=== PATIENT | female | born 1955 | race Hispanic/Latino ===

== ENCOUNTER 2018-03-19 23:59 | Emergency (ER) | payer MEDICAID, MEDICARE ==
[2018-03-20 01:53] LABS: BASO % 0.6 % (0.0-2.0); EOS # 0.1 K/uL (0.0-0.7); EOS % 1.8 % (0.0-4.0); HEMOGLOBIN 12.5 g/dL (12.0-16.0); LYMPH # 1.5 K/uL (1.0-4.3); LYMPH % 18.5 % (20.0-40.0); MEAN CORPUSCULAR HEMOGLOBIN 29.5 pg (27.0-31.0); MEAN CORPUSCULAR HGB CONC 33.5 g/dL (33.0-37.0); MEAN PLATELET VOLUME 8.2 fl (7.2-11.7); MONO # 0.8 K/uL (0.0-0.8); MONO % 9.6 % (0.0-10.0); NEUT # 5.7 K/uL (1.8-7.0); NEUT % 69.5 % (50.0-75.0); RBC 4.22 Mil/uL (3.80-5.20); RED CELL DISTRIBUTION WIDTH 13.2 % (11.5-14.5); WHITE BLOOD COUNT 8.3 K/uL (4.8-10.8)
[2018-03-20 02:02] LABS: BLOOD UREA NITROGEN 16 mg/dl (7-17); CALCIUM 9.2 mg/dL (8.4-10.2); GFR AFRICAN-AMERICAN > 60; GFR NON-AFRICAN AMERICAN > 60
--- NOTE | 2018-03-20 04:03 | ED PDOC ---
HPI: Psych/Substance Abuse Time Seen by Provider: 03/20/18 00:52 Chief Complaint (Nursing): Psychiatric Evaluation Chief Complaint (Provider): Psychiatric Evaluation History Per: Patient History/Exam Limitations: no limitations Onset/Duration Of Symptoms: Hrs Current Symptoms Are (Timing): Still Present Associated Symptoms: Anxiety, Depression. denies: Suicidal Thoughts, Suicidal Plan Additional Complaint(s): Bree Cody is a 62 year old female with a past medical history of depression, bipolar disorder, and anxiety who was brought to the ED by EMS s/p being found wandering the street in her socks. Patient has not seen her psychiatrist in several months and she states that her mind just flipped. She reports that there is a person in her building that makes her feel very anxious and she saw them in the laundry room of her building. She says that she went straight to her apartment and then couldn't think straight so she ran out. Patient denies any suicidal or homicidal ideation. Denies fever, headache, dizziness, CP, SOB, abdominal pain, N/V. Has no other complaints. PMD: Kaylee Collado Past Medical History Reviewed: Historical Data, Nursing Documentation, Vital Signs Vital Signs: Last Vital Signs Temp Pulse 76 03/20/18 00:01 Resp 18 03/20/18 00:01 BP 170/76 H 03/20/18 00:01 Pulse Ox 99 03/20/18 00:01 - Medical History PMH: Anxiety, Bipolar Disorder, Depression, Gastritis, Hypercholesterolemia Denies: Chronic Kidney Disease - Surgical History Surgical History: No Surg Hx - Family History Family History: States: Unknown Family Hx - Social History Current smoker - smoking cessation education provided: No Alcohol: None Drugs: Denies - Home Medications Home Medications: Ambulatory Orders Medication Instructions Recorded Atorvastatin [Lipitor] 20 mg PO DAILY #0 tab 02/08/15 Lamotrigine [Lamictal Xr] 50 mg PO DAILY #30 ter 02/08/15 Risperidone [Risperdal] 0.5 mg PO DAILY #30 tab 02/08/15 Nitrofurantoin Macrocrystals 100 mg PO BID #20 cap 03/20/18 [Macrobid] - Allergies Allergies/Adverse Reactions: Allergies Allergy/AdvReac Type Severity Reaction Status Date / Time No Known Allergies Allergy Verified 02/07/15 00:02 Review of Systems ROS Statement: Except As Marked, All Systems Reviewed And Found Negative Psych: Negative for: Suicidal ideation, Other (homicidal ideation) Physical Exam - Reviewed Nursing Documentation Reviewed: Yes Vital Signs Reviewed: Yes - Physical Exam Comments: GENERAL APPEARANCE: Patient is awake, alert, oriented x 3, in no acute distress. SKIN: Warm, dry; (-) cyanosis HEAD: (-) scalp swelling, (-) scalp tenderness. EYES: (-) conjunctival pallor, (-) scleral icterus, (-) nystagmus. ENMT: Mucous membranes moist. Airway patent: (-) stridor. NECK: (-) tenderness, (-) stiffness, (-) lymphadenopathy. CHEST AND RESPIRATORY: (-) rales, (-) rhonchi, (-) wheezes; breath sounds equal. ABDOMEN: Soft, (-) distention, (-) tenderness, (-) guarding. NEURO AND PSYCH: Mental status as above. 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 Pupils equal and reactive; EOMI; (-) facial asymmetry; tongue and uvula midline. Strength symmetric. - Laboratory Results Result Diagrams: 03/20/18 01:51 03/20/18 01:51 - ECG ECG Rhythm: Positive for: Normal QRS, Normal ST Segment, Sinus Rhythm Rate: 94 O2 Sat by Pulse Oximetry: 99 (RA) Pulse Ox Interpretation: Normal Medical Decision Making Medical Decision Making: Time: 1:03 Plan: --EKG --Alcohol Serum --BMP --Drug Screen --CBC --CXR --1:1 Observation --Urinalysis Chest X-Ray : NAD, as read by VIVIAN. Labs reviewed : CBC and CMP are within normal limits, alcohol (-). UA +UTI. Macrobid ordered. Patient is medically cleared for crisis evaluation. Patient seen and evaluated by crisis. After crisis evaluation, plan will be for outpatient psych follow up as per Dr. Perkins. Scribe Attestation: Documented by, Yamilka Grace acting as a scribe for Heather Yanez PA-C. Provider Scribe Attestation: All medical record entries made by the Scribe were at my direction and personally dictated by me. I have reviewed the chart and agree that the record accurately reflects my personal performance of the history, physical exam, medical decision making, and the department course for this patient. I have also personally directed, reviewed, and agree with the discharge instructions and disposition. 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
[2018-03-20 04:26] LABS: SQUAMOUS EPITHIAL 1 /hpf (0-5); URINE BACTERIA RARE (<OCC); URINE BILIRUBIN NEGATIVE (NEGATIVE); URINE BLOOD NEGATIVE (NEGATIVE); URINE CLARITY CLOUDY (Clear); URINE COLOR YELLOW (YELLOW); URINE GLUCOSE (UA) NEG (Normal); URINE LEUKOCYTE ESTERASE MOD Leu/uL (Negative); URINE PROTEIN 30 mg/dL (NEGATIVE); URINE UROBILINOGEN 0.2-1.0 mg/dL (0.2-1.0)
[2018-03-20 05:19] LABS: BARBITURATES, UR NEGATIVE (NEGATIVE); BENZODIAZEPINES, UR NEGATIVE (NEGATIVE); OPIATES, UR NEGATIVE (NEGATIVE); PHENCYCLIDINE, UR NEGATIVE (NEGATIVE)
[2018-03-20 05:45] VITALS: BP 152/77; RESP 17; TEMP 97.7
[2018-03-20 06:04] VITALS: PULSE 94; O2SAT 99
--- NOTE | 2018-03-20 08:08 | RAD ---
PROCEDURE: CHEST RADIOGRAPH, 1 VIEW HISTORY: psych eval COMPARISON: Portable chest 04/03/2016. FINDINGS: LUNGS: No active pulmonary disease. Improved inspiratory volume noted. PLEURA: No pneumothorax or pleural fluid seen. CARDIOVASCULAR: Normal. OSSEOUS STRUCTURES: No significant abnormalities. VISUALIZED UPPER ABDOMEN: Normal. OTHER FINDINGS: None. IMPRESSION: No interval acute cardiopulmonary disease appreciated.
--- NOTE | 2018-03-20 08:42 | CARD ---
APPROVED REPORT EKG Measurement Heart [id number] <Conclusion> Normal sinus rhythm Normal ECG
== END 2018-03-20 06:46 | disposition home or self-care (01) ==
LOC: H.ER 23:59
DX: F31.9 Bipolar disorder, unspecified (principal); N39.0 Urinary tract infection, site not specified; E78.00 Pure hypercholesterolemia, unspecified; F41.9 Anxiety disorder, unspecified
CPT/HCPCS: 71045; 80048; 81003; 85025; 93005; 99283; G0480

== ENCOUNTER 2018-03-27 22:52 | Emergency (ER) | payer MEDICARE ==
[2018-03-27 22:57] VITALS: BP 134/71; PULSE 96; RESP 16; O2SAT 98
[2018-03-27] MEDS ORDERED: Calamine/Zinc Oxide LOTION TOP STA (23:38)
[2018-03-27] MEDS ORDERED: Naproxen 500 MG TAB PO STA (23:38)
--- NOTE | 2018-03-27 23:38 | ED PDOC ---
HPI: Skin/Bite Injury Time Seen by Provider: 03/27/18 23:00 Chief Complaint (Nursing): Abnormal Skin Integrity Chief Complaint (Provider): Rash History Per: Patient History/Exam Limitations: no limitations Onset/Duration Of Symptoms: Days (since yesterday) Current Symptoms Are (Timing): Still Present Quality Of Symptoms: Painful ("stinging") Additional Complaint(s): Patient is a 62 year old female who presents to ED for evaluation of stinging rash to bilateral legs since yesterday. Patient reports onset of symptoms after using a new shaving cream in the shower. Patient reports no history of similar reactions. Patient took a baby aspirin at 6pm tonight and a Tylenol yesterday night for her symptoms with minimal relief. Patient denies: fever, chills, facial swelling, SOB, cough, nausea/vomiting, abdominal pain, chest pain. No other complaints at this time. PMD: Tobias Past Medical History Reviewed: Historical Data, Nursing Documentation, Vital Signs Vital Signs: Last Vital Signs Temp 98.2 F 03/27/18 22:55 Pulse 96 H 03/27/18 22:55 Resp 16 03/27/18 22:55 BP 134/71 03/27/18 22:55 Pulse Ox 98 03/27/18 23:50 - Medical History PMH: Anxiety, Depression, Gastritis, Hypercholesterolemia Other PMH: UTI - Surgical History Surgical History: Endoscopy Other surgeries: Colonoscopy. Procedure for sinuses - Family History Family History: States: Unknown Family Hx - Living Arrangements Living Arrangements: Alone - Social History Current smoker - smoking cessation education provided: No Alcohol: None Drugs: Denies - Home Medications Home Medications: Ambulatory Orders Medication Instructions Recorded Atorvastatin [Lipitor] 20 mg PO DAILY #0 tab 02/08/15 Lamotrigine [Lamictal Xr] 50 mg PO DAILY #30 ter 02/08/15 Risperidone [Risperdal] 0.5 mg PO DAILY #30 tab 02/08/15 Nitrofurantoin Macrocrystals 100 mg PO BID #20 cap 03/20/18 [Macrobid] Meloxicam [Mobic] 15 mg PO DAILY PRN #10 tab 03/27/18 Pramoxine HCl/Camph/Zinc Acet 1 applic TOP BID #1 bottle 03/27/18 [Calaclear 1%-0.1% 177 ml] - Allergies Allergies/Adverse Reactions: Allergies Allergy/AdvReac Type Severity Reaction Status Date / Time No Known Allergies Allergy Verified 02/07/15 00:02 Review of Systems ROS Statement: Except As Marked, All Systems Reviewed And Found Negative Skin: Positive for: Rash (to bilateral lower extremities) Physical Exam - Reviewed Nursing Documentation Reviewed: Yes Vital Signs Reviewed: Yes - Physical Exam Appears: Positive for: Well, Non-toxic, No Acute Distress Head Exam: Positive for: NORMOCEPHALIC Skin: Positive for: Warm, Dry, Rash (erythematous, maculopapules to bilateral distal lower extremities (-) warmth (-) tenderness (-) drainage (-) skin break ( -) evidence of cellulitis) ENT: Positive for: Other (Airway patent (-) stridor. Mucus membranes moist.) Neck: Positive for: Painless ROM, Supple Cardiovascular/Chest: Positive for: Regular Rate, Rhythm Respiratory: Positive for: Normal Breath Sounds Extremity: Positive for: Normal ROM (of bilateral lower extremities), Capillary Refill (intact), Other (sensation intact throughout.). Negative for: Tenderness , Pedal Edema, Calf Tenderness, Deformity, Swelling Neurologic/Psych: Positive for: Alert, Oriented (x3), Gait (steady in ED). Negative for: Aphasia, Facial Droop - ECG O2 Sat by Pulse Oximetry: 98 (RA) Pulse Ox Interpretation: Normal Medical Decision Making Medical Decision Making: Initial Impression: Contact dermatitis, rash Plan: -Naproxen 500mg PO -Topical Calamine Lotion -Re-evaluation 0005 On re-evaluation, patient reports improvement of symptoms. On exam, patient remains AAOx3, in no acute distress. On exam, neck is supple, lungs CTA, cardiac RRR, neuro exam shows no focal findings. Ambulatory in ED with a steady , unassisted gait. VSS, stable for discharge. Diagnostic results d/w the patient in great detail. Dx of rash, contact dermatitis d/w the patient. Based on history, exam and diagnostic results plan will be for discharge and outpatient follow up. Advised to follow up with primary care physician in 1-2 days without fail. Advised to take medication as prescribed. Return to the emergency room at any time for any new or worsening symptoms. Patient states she fully agrees with and understands discharge instructions. States that she agrees with the plan and disposition. Verbalized and repeated discharge instructions and plan. I have given the patient opportunity to ask any additional questions. Disposition - Clinical Impression Clinical Impression: Rash, Contact dermatitis - Patient ED Disposition Is Patient to be Admitted: No Counseled Patient/Family Regarding: Studies Performed, Diagnosis, Need For Followup, Rx Given - Disposition Referrals: Kaylee Collado MD [Medical Doctor] - [facility]iatry Clinic [Outside] Disposition: Routine/Home Disposition Time: 00:05 Condition: STABLE Additional Instructions: FOLLOW UP WITH PMD IN 1-2 DAYS FOR FURTHER EVALUATION. RETURN TO ED WITH ANY NEW OR WORSENING SYMPTOMS. USE PRESCRIBED MEDICATION NEEDED FOR DISCOMFORT/SYMPTOMS. AVOID USE OF IRRITANT/PRODUCT THAT PRODUCED SYMPTOMS. Prescriptions: Meloxicam [Mobic] 15 mg PO DAILY PRN #10 tab PRN Reason: Pain, Moderate (4-7) Pramoxine HCl/Camph/Zinc Acet [Calaclear 1%-0.1% 177 ml] 1 applic TOP BID #1 bottle Instructions: Contact Dermatitis (DC), Skin Rash (DC) Forms: [facility] (Andorran) Print Language: IRANIAN - POA Present On Arrival: None
[2018-03-27] MEDS ORDERED: Naproxen 500 MG TAB PO ONE (23:41)
[2018-03-28 00:09] VITALS: TEMP 98
== END 2018-03-28 00:07 | disposition home or self-care (01) ==
LOC: H.ER 22:52
DX: L25.9 Unspecified contact dermatitis, unspecified cause (principal)

== ENCOUNTER 2018-04-01 01:50 | Emergency (ER) | payer MEDICARE ==
[2018-04-01 02:08] VITALS: BP 162/72; PULSE 88; RESP 18; TEMP 97.6; O2SAT 98
[2018-04-01] MEDS ORDERED: Sodium Chloride 0.9% 500 ML IV STA (02:59)
[2018-04-01 03:37] LABS: BASO # 0.1 K/uL (0.0-0.2); BASO % 1.2 % (0.0-2.0); EOS # 0.4 K/uL (0.0-0.7); EOS % 7.3 % (0.0-4.0); HEMOGLOBIN 12.3 g/dL (12.0-16.0); LYMPH # 1.9 K/uL (1.0-4.3); LYMPH % 32.1 % (20.0-40.0); MEAN CELL VOLUME 88.8 fl (81.0-99.0); MEAN CORPUSCULAR HEMOGLOBIN 29.9 pg (27.0-31.0); MEAN CORPUSCULAR HGB CONC 33.6 g/dL (33.0-37.0); MEAN PLATELET VOLUME 8.7 fl (7.2-11.7); MONO # 0.5 K/uL (0.0-0.8); MONO % 8.8 % (0.0-10.0); NEUT % 50.6 % (50.0-75.0); NRBC % 0.1 % (0.0-0.0); RBC 4.13 Mil/uL (3.80-5.20); RED CELL DISTRIBUTION WIDTH 13.8 % (11.5-14.5); WHITE BLOOD COUNT 5.9 K/uL (4.8-10.8)
--- NOTE | 2018-04-01 03:43 | ED PDOC ---
Syncope/Near Syncope/Dizziness Time Seen by Provider: 04/01/18 02:17 Chief Complaint (Nursing): Dizziness/Lightheaded Chief Complaint (Provider): Dizziness History Per: Patient History/Exam Limitations: no limitations Onset/Duration Of Symptoms: Days (x1) Current Symptoms Are (Timing): Gone Now Additional Complaint(s): Bree Cody is a 62 year old female with a past medical history of hypercholesterolemia, depression and anxiety who is presenting to the ED for evaluation of dizziness described as lightheadedness, without vertigo and bilateral leg swelling onset 1 day ago. Patient states that dizziness occurs when walking outside in the heat and is not affected by head movements. She admits to walking outside more frequently as her doctor has encouraged more exercise to lose weight. Patient denies any headache, chest pain, shortness of breath, N/V, abdominal pain, fever, URI, recent travel/hospitalization/surgery, smoking. She states that she doesn't feel dizzy now. PMD: Kaylee Collado Past Medical History Reviewed: Historical Data, Nursing Documentation, Vital Signs Vital Signs: Last Vital Signs Temp 97.6 F 04/01/18 02:05 Pulse 88 04/01/18 02:05 Resp 18 04/01/18 02:05 BP 162/72 H 04/01/18 02:05 Pulse Ox 98 04/01/18 02:05 - Medical History PMH: Anxiety, Bipolar Disorder, Depression, Gastritis, Hypercholesterolemia Denies: Diabetes, Hepatitis, HIV, HTN, Chronic Kidney Disease, Seizures, Sexually Transmitted Disease - Surgical History Surgical History: Endoscopy - Family History Family History: States: Unknown Family Hx - Social History Current smoker - smoking cessation education provided: No Alcohol: None Drugs: Denies - Home Medications Home Medications: Ambulatory Orders Medication Instructions Recorded Atorvastatin [Lipitor] 20 mg PO DAILY #0 tab 02/08/15 Lamotrigine [Lamictal Xr] 50 mg PO DAILY #30 ter 02/08/15 Risperidone [Risperdal] 0.5 mg PO DAILY #30 tab 02/08/15 Nitrofurantoin Macrocrystals 100 mg PO BID #20 cap 03/20/18 [Macrobid] Meloxicam [Mobic] 15 mg PO DAILY PRN #10 tab 03/27/18 Pramoxine HCl/Camph/Zinc Acet 1 applic TOP BID #1 bottle 03/27/18 [Calaclear 1%-0.1% 177 ml] - Allergies Allergies/Adverse Reactions: Allergies Allergy/AdvReac Type Severity Reaction Status Date / Time No Known Allergies Allergy Verified 02/07/15 00:02 Review of Systems ROS Statement: Except As Marked, All Systems Reviewed And Found Negative Cardiovascular: Negative for: Chest Pain Respiratory: Negative for: Shortness of Breath Gastrointestinal: Negative for: Nausea, Vomiting Musculoskeletal: Positive for: Leg Pain (swelling) Neurological: Positive for: Dizziness. Negative for: Headache Physical Exam - Reviewed Nursing Documentation Reviewed: Yes Vital Signs Reviewed: Yes - Physical Exam Comments: GENERAL APPEARANCE: Patient is awake, alert, oriented x 3, in no acute distress. SKIN: Warm, dry; (-) cyanosis; (-) rash. HEAD: (-) scalp swelling or tenderness, (-) temporal artery tenderness. EYES: (-) conjunctival pallor, (-) scleral icterus, (-) nystagmus. ENMT: (-) sinus tenderness; mucous membranes are moist. NECK: (-) tenderness, (-) stiffness, (-) meningismus, (-) lymphadenopathy. CHEST AND RESPIRATORY: (-) rales, (-) rhonchi, (-) wheezes; breath sounds equal bilaterally. HEART AND CARDIOVASCULAR: (-) irregularity; (-) murmur, (-) gallop. ABDOMEN AND GI: Soft; (-) tenderness. EXTREMITIES: (-) deformity, (+) non-pitting edema to both legs. NEURO AND PSYCH: Mental status as above. 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 Strength symmetric. Gait steady. - Laboratory Results Result Diagrams: 04/01/18 03:19 04/01/18 03:19 - ECG O2 Sat by Pulse Oximetry: 98 (RA) Pulse Ox Interpretation: Normal Medical Decision Making Medical Decision Making: Time: 2:58 Plan: --CT Head --EKG--B Type Natriuretic Peptide --CMP --Troponin --CBC --CXR --IV Fluids EKG : NSR at 74 bpm, no acute ST changes, as read by VIVIAN CXR : NAD, as read by VIVIAN Labs reviewed : trop (-), BNP wnl, rest of labs wnl. CT head : FINDINGS: Brain: Mild volume loss No hemorrhage. No significant white matter disease. No edema. Ventricles: Normal. No ventriculomegaly. Bones/joints: Normal. No acute fracture. Sinuses: Normal as visualized. No acute sinusitis. Mastoid air cells: Normal as visualized. No mastoid effusion. Soft tissues: Normal. IMPRESSION: No intracranial hemorrhage.Please see discussion above. Dictated and Authenticated by: Sebastián Wade MD 04/01/2018 4:09 AM Eastern Time ([place] & [place]) On re-evaluation, patient reports improvement of symptoms, denies any dizziness , headache, CP or SOB. On exam, patient remains AAOx3, in no acute distress. Repeat neuro exam shows no focal findings. Patient observed ambulating in the ER with a steady gait. Diagnostic results d/w the patient in great detail. Based on history, exam and diagnostic results, plan will be for outpatient follow up. Patient instructed to follow-up with pmd in 1-2 days without fail. Return to the emergency room at any time for any new or worsening symptoms. Patient states she fully agrees with and understands discharge instructions. States that she agrees with the plan and disposition. Verbalized and repeated discharge instructions and plan. I have given the patient opportunity to ask any additional questions. Scribe Attestation: Documented by, Yamilka Grace acting as a scribe for Heather Yanez PA-C. Provider Scribe Attestation: All medical record entries made by the Scribe were at my direction and personally dictated by me. I have reviewed the chart and agree that the record accurately reflects my personal performance of the history, physical exam, medical decision making, and the department course for this patient. I have also personally directed, reviewed, and agree with the discharge instructions and disposition. Disposition - Clinical Impression Clinical Impression: Dizziness, Leg edema - Patient ED Disposition Is Patient to be Admitted: No Counseled Patient/Family Regarding: Studies Performed, Diagnosis, Need For Followup - Disposition Disposition: Routine/Home Disposition Time: 05:00 Condition: STABLE Additional Instructions: Thank you for letting us take care of you today. You were treated for dizziness , b/l leg edema. The emergency medical care you received today was directed at your acute symptoms. Stay well hydrated, elevate your legs, avoid exercising in the heat. Return to the Emergency Department if your symptoms worsen, do not improve, or if you have any other problems. Please contact your doctor in 2 days for re-evaluation and follow up. Bring any paperwork you were given at discharge with you along with any medications you are taking to your follow up visit. Our treatment cannot replace ongoing medical care by a primary care provider (PCP) outside of the emergency department. Thank you for allowing the [facility] team to be part of your care today. 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
[2018-04-01 03:48] LABS: ALB/GLOB RATIO 1.1 (1.0-2.1); ALBUMIN 3.9 g/dL (3.5-5.0); ALT/SGPT 33 U/L (9-52); AST/SGOT 45 U/L (14-36); B-TYPE NATRIURETIC PEPTIDE 91.7 pg/ml (0-900); BLOOD UREA NITROGEN 19 mg/dl (7-17); CALCIUM 8.6 mg/dL (8.4-10.2); GFR AFRICAN-AMERICAN > 60; GFR NON-AFRICAN AMERICAN > 60
--- NOTE | 2018-04-01 08:25 | CARD ---
APPROVED REPORT EKG Measurement Heart [id number] [place] [id number] <Conclusion> Normal sinus rhythm Normal ECG
--- NOTE | 2018-04-01 08:28 | CT ---
PROCEDURE: CT HEAD WITHOUT CONTRAST. HISTORY: dizziness COMPARISON: None available. TECHNIQUE: Axial computed tomography images were obtained through the head/brain without intravenous contrast. Radiation dose: Total exam DLP = 819.1 mGy-cm. This CT exam was performed using one or more of the following dose reduction techniques: Automated exposure control, adjustment of the mA and/or kV according to patient size, and/or use of iterative reconstruction technique. FINDINGS: HEMORRHAGE: No intracranial hemorrhage. BRAIN: No mass effect or edema. No atrophy or chronic microvascular ischemic changes. VENTRICLES: Unremarkable. No hydrocephalus. CALVARIUM: Unremarkable. PARANASAL SINUSES: Unremarkable as visualized. No significant inflammatory changes. MASTOID AIR CELLS: Unremarkable as visualized. No inflammatory changes. OTHER FINDINGS: None. IMPRESSION: No intracranial mass, hemorrhage or evidence of acute infarct. Preliminary interpretation of this examination was reported by [facility] at 4:09 a.m. on 04/01/2018. There is concurrence of this report with the preliminary interpretation.
--- NOTE | 2018-04-01 08:29 | RAD ---
HISTORY: dizziness, leg swelling COMPARISON: 03/20/2018 FINDINGS: LUNGS: No active pulmonary disease. PLEURA: No significant pleural effusion identified, no pneumothorax apparent. CARDIOVASCULAR: Normal. OSSEOUS STRUCTURES: No significant abnormalities. VISUALIZED UPPER ABDOMEN: Normal. OTHER FINDINGS: None. IMPRESSION: No active disease.
== END 2018-04-01 05:16 | disposition home or self-care (01) ==
LOC: H.ER 01:50
DX: R42 Dizziness and giddiness (principal); R60.0 Localized edema; E78.00 Pure hypercholesterolemia, unspecified; F31.9 Bipolar disorder, unspecified; F41.9 Anxiety disorder, unspecified
CPT/HCPCS: 70450; 71045; 80053; 83880; 84484; 85025; 93005; 99285; J7040

== ENCOUNTER 2018-04-05 01:40 | Emergency (ER) | payer MEDICARE ==
[2018-04-05 02:10] VITALS: TEMP 98
--- NOTE | 2018-04-05 02:26 | ED PDOC ---
HPI: General Adult Time Seen by Provider: 04/05/18 02:23 Chief Complaint (Nursing): Shortness Of Breath Chief Complaint (Provider): SOB History Per: Patient (62 Y/O FEMALE H/O BIPOLAR DISORDER/DEPRESSION HERE FOR EVALUATION OF SOB/ANXIETY. PATIENT STATES SHE HAS HAD ANXIETY 1 WEEK AND SPOKE WITH HER PSYCHIATRIST YESTERDAY. PATIENT WAS STARTED ON MEDICATION BY PSYCH YESTERDAY BUT DOES NOT FEEL IMPROVED YET.) Past Medical History Reviewed: Historical Data, Nursing Documentation, Vital Signs Vital Signs: Last Vital Signs Temp 98.0 F 04/05/18 02:02 Pulse 82 04/05/18 03:06 Resp 17 04/05/18 03:06 BP 152/93 H 04/05/18 03:06 Pulse Ox 99 04/05/18 03:06 - Medical History PMH: Anxiety, Bipolar Disorder, Depression, Gastritis, Hypercholesterolemia Denies: Diabetes, Hepatitis, HIV, HTN, Chronic Kidney Disease, Seizures, Sexually Transmitted Disease - Surgical History Surgical History: Endoscopy - Family History Family History: States: Unknown Family Hx - Home Medications Home Medications: Ambulatory Orders Medication Instructions Recorded Atorvastatin [Lipitor] 20 mg PO DAILY #0 tab 02/08/15 Lamotrigine [Lamictal Xr] 50 mg PO DAILY #30 ter 02/08/15 Risperidone [Risperdal] 0.5 mg PO DAILY #30 tab 02/08/15 Nitrofurantoin Macrocrystals 100 mg PO BID #20 cap 03/20/18 [Macrobid] Meloxicam [Mobic] 15 mg PO DAILY PRN #10 tab 03/27/18 Pramoxine HCl/Camph/Zinc Acet 1 applic TOP BID #1 bottle 03/27/18 [Calaclear 1%-0.1% 177 ml] - Allergies Allergies/Adverse Reactions: Allergies Allergy/AdvReac Type Severity Reaction Status Date / Time No Known Allergies Allergy Verified 02/07/15 00:02 Review of Systems ROS Statement: Except As Marked, All Systems Reviewed And Found Negative Physical Exam - Reviewed Nursing Documentation Reviewed: Yes Vital Signs Reviewed: Yes - Physical Exam Appears: Positive for: Well, Non-toxic, No Acute Distress Head Exam: Positive for: ATRAUMATIC, NORMAL INSPECTION, NORMOCEPHALIC Skin: Positive for: Normal Color, Warm, DRY Eye Exam: Positive for: EOMI, Normal appearance, PERRL ENT: Positive for: Normal ENT Inspection Neck: Positive for: Normal, Painless ROM Cardiovascular/Chest: Positive for: Regular Rate, Rhythm Respiratory: Positive for: CNT, Normal Breath Sounds Gastrointestinal/Abdominal: Positive for: Normal Exam, Soft Back: Positive for: Normal Inspection Extremity: Positive for: Normal ROM Neurologic/Psych: Positive for: Alert, Oriented - ECG ECG Rhythm: Positive for: Sinus Rhythm (NSR 78BPM NO ECTOPY NO ACUTE CHANGES) O2 Sat by Pulse Oximetry: 98 - Progress ED Course And Treament: XANAX 0.25MG X 1 DOSE REPEAT BP IMPROVED. PATIENT STATES SHE FEELS IMPROVED AND WOULD LIKE TO GO HOME. Disposition - Clinical Impression Clinical Impression: Anxiety - Patient ED Disposition Is Patient to be Admitted: No - Disposition Disposition: Routine/Home Disposition Time: 02:50 Condition: FAIR Instructions: Anxiety, Adult (DC)
[2018-04-05 03:09] VITALS: BP 152/93; PULSE 82; RESP 17
[2018-04-05 03:39] VITALS: O2SAT 98
--- NOTE | 2018-04-05 09:17 | CARD ---
APPROVED REPORT EKG Measurement Heart [id number] 126P32 [id number] <Conclusion> Normal sinus rhythm Normal ECG
== END 2018-04-05 03:10 | disposition home or self-care (01) ==
LOC: H.ER 01:40
DX: F41.9 Anxiety disorder, unspecified (principal); Z86.59 Personal history of other mental and behavioral disorders